=== PATIENT | female | born 1970 | race African-American/Black ===

== ENCOUNTER 2017-08-11 07:31 | Emergency (ER) | payer BC ==
--- NOTE | 2017-08-11 08:17 | EDM.PDOC ---
ED HPI GENERAL MEDICAL PROBLEM - General Chief Complaint: Skin Complaint Stated Complaint: RASH, INFLAMMATION ON RIGHT ARM Time Seen by Provider: 08/11/17 08:15 - History of Present Illness INITIAL COMMENTS - FREE TEXT/NARRATIVE: HISTORY AND PHYSICAL: History of present illness: Past 47-year-old black female presents with concern of erythema and irritation to her right upper extremity that occurred after she applied rubbing alcohol on her arm extensively and placed in a brace on it no reported fever chills nausea vomiting or other complaints Review of systems: As per history of present illness and below otherwise all systems reviewed and negative. Past medical history: As per history of present illness and as reviewed below otherwise noncontributory. Surgical history: As per history of present illness and as reviewed below otherwise noncontributory. Social history: No reported history of drug or alcohol abuse. Family history: As per history of present illness and as reviewed below otherwise noncontributory. Physical exam: HEENT: Atraumatic, normocephalic, pupils reactive, negative for conjunctival pallor or scleral icterus, mucous membranes moist, throat clear, neck supple, nontender, trachea midline. Lungs: Clear to auscultation, breath sounds equal bilaterally, chest nontender. Heart: S1S2, regular, negative for clicks, rubs, or JVD. Abdomen: Soft, nondistended, nontender. Negative for masses or hepatosplenomegaly. Negative for costovertebral tenderness. Pelvis: Stable nontender. Genitourinary: Deferred. Rectal: Deferred. Extremities: Right arm as a area of erythema and warmth directly involving the area where alcohol was applied prior. CMS neurovascular exams unremarkable Neuro: Awake, alert, oriented. Cranial nerves II through XII unremarkable. Cerebellum unremarkable. Motor and sensory unremarkable throughout. Exam nonfocal. Diagnostics: None Therapeutics: None Impression: #1 contact dermatitis Definitive disposition and diagnosis as appropriate pending reevaluation and review of above. Right Arm Pain Score (Numeric/FACES): 6 - Related Data Allergies Allergy/AdvReac Type Severity Reaction Status Date / Time Penicillins Allergy Itching Verified 08/11/17 07:44 Home Meds: Home Meds Aspirin [Lo-Dose Aspirin EC] 81 mg PO BID 08/11/17 [History] Hydrochlorothiazide 25 mg PO DAILY 08/11/17 [History] Lisinopril 30 mg PO DAILY 08/11/17 [History] amLODIPine [Norvasc] 10 mg PO DAILY 08/11/17 [History] Past Medical History HEENT History: Reports: None Cardiovascular History: Reports: Hypertension Respiratory History: Reports: None Gastrointestinal History: Reports: None Genitourinary History: Reports: None 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: Musculoskeletal History: Reports: Other (See Below) Other Musculoskeletal History: carpal tunnel Neurological History: Reports: None Psychiatric History: Reports: None Endocrine/Metabolic History: Reports: None Hematologic History: Reports: None Immunologic History: Reports: None Oncologic (Cancer) History: Reports: None Dermatologic History: Reports: None - Infectious Disease History Infectious Disease History: Reports: Chicken Pox, Measles, Mumps - Past Surgical History Head Surgeries/Procedures: Reports: None HEENT Surgical History: Reports: None Cardiovascular Surgical History: Reports: None Respiratory Surgical History: Reports: None GI Surgical History: Reports: None Female Surgical History: Reports: None Endocrine Surgical History: Reports: None Neurological Surgical History: Reports: None Musculoskeletal Surgical History: Reports: None Oncologic Surgical History: Reports: None Dermatological Surgical History: Reports: None Social & Family History - Family History Family Medical History: Noncontributory - Tobacco Use Smoking Status *Q: Never Smoker - Caffeine Use Caffeine Use: Reports: Coffee - Recreational Drug Use Recreational Drug Use: No ED ROS GENERAL - Review of Systems Review Of Systems: ROS reveals no pertinent complaints other than HPI. ED EXAM, SKIN/RASH Exam: See Below (See dictation) Course - Vital Signs Last Recorded V/S: Last Vital Signs Temp 36.3 C 08/11/17 07:47 Pulse 87 08/11/17 07:47 Resp 18 08/11/17 07:47 BP 171/99 H 08/11/17 07:47 Pulse Ox 100 08/11/17 07:47 Departure - Departure Time of Disposition: 08:18 Disposition: Home, Self-Care 01 Condition: Good Clinical Impression: Contact dermatitis - Discharge Information Referrals: PCP,None [Primary Care Provider] - Forms: ED Department Discharge Additional Instructions: The following information is given to patients seen in the emergency department who are being discharged to home. This information is to outline your options for follow-up care. We provide all patients seen in our emergency department with a follow-up referral. The need for follow-up, as well as the timing and circumstances, are variable depending upon the specifics of your emergency department visit. If you don't have a primary care physician on staff, we will provide you with a referral. We always advise you to contact your personal physician following an emergency department visit to inform them of the circumstance of the visit and for follow-up with them and/or the need for any referrals to a consulting specialist. The emergency department will also refer you to a specialist when appropriate. This referral assures that you have the opportunity for followup care with a specialist. All of these measure are taken in an effort to provide you with optimal care, which includes your followup. Under all circumstances we always encourage you to contact your private physician who remains a resource for coordinating your care. When calling for followup care, please make the office aware that this follow-up is from your recent emergency room visit. If for any reason you are refused follow-up, please contact the [facility] emergency department at and asked to speak to the emergency department charge nurse. Benadryl as directed Medrol as prescribed follow-up primary medical doctor wanted today's return as needed as discussed
== END 2017-08-11 08:27 | disposition home or self-care (01) ==
LOC: MW.ED 07:31
DX: T51.2X1A Toxic effect of 2-Propanol, accidental (unintentional), initial encounter (principal); L24.2 Irritant contact dermatitis due to solvents; Z88.0 Allergy status to penicillin; Z79.899 Other long term (current) drug therapy; Z79.82 Long term (current) use of aspirin
CPT/HCPCS: 99282; 99283

== ENCOUNTER 2017-12-21 17:57 | Emergency (ER) | payer OTHER, BC ==
[2017-12-21] MEDS ORDERED: Ketorolac 60 MG/2 ML SDV IM ONE (18:16)
--- NOTE | 2017-12-21 18:18 | EDM.PDOC ---
<Melodie Hernandez - Last Filed: 12/21/17 19:55> ED HPI GENERAL MEDICAL PROBLEM - General Chief Complaint: Lower Extremity Injury/Pain Stated Complaint: FALL/PAIN LT LEG Time Seen by Provider: 12/21/17 18:13 Source of Information: Reports: Patient History Limitations: Reports: No Limitations - History of Present Illness INITIAL COMMENTS - FREE TEXT/NARRATIVE: HISTORY AND PHYSICAL: []47-year-old female presenting with left ankle and foot pain from a fall on ice days ago History of Present Illness: []Patient slipped on the ice on Sunday 3 days ago had pain has increased over the last 3 days has difficulty putting weight on her foot and ankle Review of Systems: As per history of present illness and below otherwise all systems reviewed and negative. Past medical history: As per history of present illness and as reviewed below otherwise noncontributory. Surgical history: As per history of present illness and as reviewed below otherwise noncontributory. Social history: No reported history of drug or alcohol abuse. Family history: As per history of present illness and as reviewed below otherwise noncontributory. Physical exam: HEENT: Atraumatic, normocehpalic, pupils reactive, negative for conjunctival pallor or scleral icterus, mucous membranes moist, throat clear, neck supple, nontender, trachea midline. Lungs: Clear to auscultation, breath sounds equal bilaterally, chest non tender. Heart: S1S2, regular, negative for clicks, rubs, or JVD. Abdomen: Soft, nondistended, nontender. Negative for masses or hepatossplenmegaly. Negative for costovertebral tenderness. Pelvis: Stable nontender. Genitourinary: Deferred. Rectal: Deferred Extremities: Atraumatic, negative for cords or calf pain. Neurovascular unremarkable. Neuro: Awake, alert, oriented. Cranial nerves II through XII unremarkable. Cerebellum unremarkable. Motor and sensory unremarkable throughout. Exam nonfocal. Diagnostics: [X-ray foot x-ray ankle on left] Therapeutics: [Toradol 60 IM] Impression: [Fracture to the distal edge of the] Plan: [Charge to home Cam Walker boot Ibuprofen Follow-up with your primary care next week ] Definitive disposition and diagnosis as appropriate pending reevaluation and review of above. left ankle Pain Score (Numeric/FACES): 10 - Related Data Allergies Allergy/AdvReac Type Severity Reaction Status Date / Time Penicillins Allergy Itching Verified 08/11/17 07:44 Home Meds: Home Meds Aspirin [Lo-Dose Aspirin EC] 81 mg PO BID 08/11/17 [History] amLODIPine [Norvasc] 10 mg PO DAILY 08/11/17 [History] Lisinopril/Hydrochlorothiazide [Lisinopril-Hctz 20-25 mg Tab] 1 each PO DAILY [History] Past Medical History HEENT History: Reports: None Cardiovascular History: Reports: Hypertension Respiratory History: Reports: None Gastrointestinal History: Reports: None Genitourinary History: Reports: None 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: Musculoskeletal History: Reports: Other (See Below) Other Musculoskeletal History: carpal tunnel Neurological History: Reports: None Psychiatric History: Reports: None Endocrine/Metabolic History: Reports: None Hematologic History: Reports: None Immunologic History: Reports: None Oncologic (Cancer) History: Reports: None Dermatologic History: Reports: None - Infectious Disease History Infectious Disease History: Reports: Chicken Pox, Measles, Mumps - Past Surgical History Head Surgeries/Procedures: Reports: None HEENT Surgical History: Reports: None Cardiovascular Surgical History: Reports: None Respiratory Surgical History: Reports: None GI Surgical History: Reports: None Female Surgical History: Reports: None Endocrine Surgical History: Reports: None Neurological Surgical History: Reports: None Musculoskeletal Surgical History: Reports: None Oncologic Surgical History: Reports: None Dermatological Surgical History: Reports: None Social & Family History - Family History Family Medical History: Noncontributory - Tobacco Use Smoking Status *Q: Never Smoker - Caffeine Use Caffeine Use: Reports: Coffee - Recreational Drug Use Recreational Drug Use: No Review of Systems - Review of Systems Review Of Systems: ROS reveals no pertinent complaints other than HPI. ED EXAM, GENERAL - Physical Exam Exam: See Below Course - Vital Signs Last Recorded V/S: Last Vital Signs Temp 36.5 C 12/21/17 20:10 Pulse 88 12/21/17 20:10 Resp 18 12/21/17 20:10 BP 140/80 12/21/17 20:10 Pulse Ox 97 12/21/17 20:10 - Orders/Labs/Meds Orders: Active Orders 24 hr Category Date Time Status Splinting [RC] ASDIRECTED Care 12/21/17 19:43 Active Ankle Min 3V Lt [CR] Stat Exams 12/21/17 18:16 Taken Foot 2V Lt [CR] Stat Exams 12/21/17 18:16 Taken DME for Discharge [COMM] Stat Oth 12/21/17 19:54 Ordered Meds: Medications Discontinued Medications Generic Name Dose Route Start Last Admin Trade Name Berkley PRN Reason Stop Dose Admin Ketorolac Tromethamine 60 mg 12/21/17 18:16 12/21/17 18:58 Toradol IM 12/21/17 18:17 60 mg ONETIME ONE Administration Departure - Departure Time of Disposition: 19:48 Disposition: Home, Self-Care 01 Condition: Good Clinical Impression: Fracture Fracture of malleolus of right ankle Qualifiers: Encounter type: initial encounter Fracture type: closed Qualified Code(s): S82.891A - Other fracture of right lower leg, initial encounter for closed fracture - Discharge Information Instructions: Cast or Splint Care, Adult, [id number] Referrals: PCP,None [Primary Care Provider] - Forms: ED Department Discharge Additional Instructions: The following information is given to patients seen in the emergency department who are being discharged to home. This information is to outline your options for follow-up care. We provide all patients seen in our emergency department with a follow-up referral. The need for follow-up, as well as the timing and circumstances, are variable depending upon the specifics of your emergency department visit. If you don't have a primary care physician on staff, we will provide you with a referral. We always advise you to contact your personal physician following an emergency department visit to inform them of the circumstance of the visit and for follow-up with them and/or the need for any referrals to a consulting specialist. The emergency department will also refer you to a specialist when appropriate. This referral assures that you have the opportunity for followup care with a specialist. All of these measure are taken in an effort to provide you with optimal care, which includes your followup. Under all circumstances we always encourage you to contact your private physician who remains a resource for coordinating your care. When calling for followup care, please make the office aware that this follow-up is from your recent emergency room visit. If for any reason you are refused follow-up, please contact the [facility] emergency department at and asked to speak to the emergency department charge nurse. Keep the boot on for support to your ankle Ibuprofen [id number] 4 tablets 3 times daily for anti-inflammatory effect and pain relief Crutches stabilizing when you walk <Charlee Nicole - Last Filed: 12/22/17 00:04> ED HPI GENERAL MEDICAL PROBLEM - History of Present Illness INITIAL COMMENTS - FREE TEXT/NARRATIVE: Please addend the impression to say fracture of the tip of the medial malleolus.
--- NOTE | 2017-12-24 10:37 | CR ---
EXAM DATE: 12/21/17 PATIENT'S AGE: 47 Patient: DILMA FUENTES Facility: [place], [place] Site . Site : 1970 Study: XRay Extremity Left Ankle [id number] 6:54:50 PM Ordering Physician: Doctor Anderson Final Report: Indication: Injury and pain Technique: Left ankle three views Comparison: None Findings/Impression: Bones: Acute transverse nondisplaced fracture is in the tip of the medial malleolus. No other osseous abnormality. Joint spaces: Ankle mortise is congruent. Soft tissues: Unremarkable. Dictated by David Schuler MD @ Dec 21 2017 6:59PM (Electronic Signature) Report Signed by Proxy. SCOTT
--- NOTE | 2017-12-24 10:38 | CR ---
EXAM DATE: 12/21/17 PATIENT'S AGE: 47 Patient: DILMA FUENTES Facility: [place], [place] Site . Site : 1970 Study: XRay Extremity Left Foot [id number] 6:55:08 PM Ordering Physician: Doctor Anderson Final Report: Indication: Injury and pain Technique: Left foot two views Comparison: None Findings: Bones: Alignment is normal. No fractures or bone lesions. Calcaneal bone spurs are present. Joint spaces: Unremarkable. Soft tissues: Unremarkable. Impression: No sign of acute injury. Dictated by David Schuler MD @ 12/21/2017 7:32:41 PM Dictated by: David Schuler MD @ 12/21/2017 19:32:45 (Electronic Signature) Report Signed by Proxy. [email or web address]
== END 2017-12-21 20:15 | disposition home or self-care (01) ==
LOC: MW.ED 17:57
DX: S82.62XA Displaced fracture of lateral malleolus of left fibula, initial encounter for closed fracture (principal); I10 Essential (primary) hypertension; Z79.82 Long term (current) use of aspirin; Z79.899 Other long term (current) drug therapy; W00.9XXA Unspecified fall due to ice and snow, initial encounter
CPT/HCPCS: 73610; 73620; 96372; 99283; J1885